=== PATIENT | female | born 1980 | race Caucasian/White ===

== ENCOUNTER 2018-02-15 14:23 | Emergency (ER) | payer BC ==
[~2018-02-15] VITALS: Ht 167.6 cm; Wt 61.2 kg
[2018-02-15 14:46] VITALS: BP 114/76
[2018-02-15] MEDS ORDERED: AMOXICILLIN/CLAV 875-125MG TABLET ONE (15:18)
[2018-02-15] MEDS ORDERED: AMOXICILLIN/CLAV 875-125MG TABLET PO ONE (15:30)
[2018-02-15] MEDS ORDERED: IBUPROFEN 200 MG TABLET ONE (15:44)
[2018-02-15] MEDS ORDERED: BACITRACIN ZINC OINT 500U/GM, 0.9 GM ONE (15:47)
== END 2018-02-15 16:16 | disposition home or self-care (01) ==
LOC: ED 16:08
DX: S61.531A Puncture wound without foreign body of right wrist, initial encounter (principal); S61.431A Puncture wound without foreign body of right hand, initial encounter; W54.0XXA Bitten by dog, initial encounter; Y93.89 Activity, other specified; Y92.488 Other paved roadways as the place of occurrence of the external cause; Y99.8 Other external cause status
CPT/HCPCS: 99284